=== PATIENT | female | born 1935 | race Caucasian/White ===

== ENCOUNTER → 2018-12-24 | Outpatient (CLI) | payer MEDICARE, OTHER ==
[~2018-12-24] MED LIST: AMLO5; ASPI81EC; FISH1000; GLUC500; MULVITMINF; RXPROACE PO; VALS80
== END | disposition home or self-care (01) ==
LOC: PLD 09:26 → LAB SHORT 09:26
DX: D48.5 Neoplasm of uncertain behavior of skin (principal)
CPT/HCPCS: 88305

== ENCOUNTER 2019-10-21 07:27 | Day surgery (SDC) | payer MEDICARE, OTHER ==
[~2019-10-21] VITALS: Ht 167.6 cm; Wt 66.9 kg
[~2019-10-21 07:27] MED LIST changes: -AMLO5; +AMLO5 PO; +EZALLOR SPRINKLE5 MG PO; +HAIR, SKIN AND1 EAC3 PO; +IRBE150 PO; +LEVSOD50 PO; +MIRALAX17 GM; +TORS10 PO; +VITAMIN D31000 UNI1 PO
--- NOTE | 2019-10-21 10:37 | NUR ---
10/21/19 ANURADHA STACY ON ROOM AIR. PATIENT UP TO CHAIR/STEADY ON FEET. TOLERATING PO INTAKE. DENIES PAIN/NAUSEA. CAP REFILL WNL ON RUE, PATIENT REPORTS NUMBNESS D/T LOCAL ANESTHESIA. PATIENT REPORTS THAT SHE WILL NOT BE TAKING TRAMADOL BECAUSE IT MADE HER AND ANOTHER FRIEND GO CRAZY. PATIENT PREFERS TO TAKE OVER THE COUNTER PAIN MEDICATIONS, AND SHE WILL CONTACT DR. RANDHAWA'S OFFICE IF THIS IS NOT EFFECTIVE FOR PAIN CONTROL. DR. RANDHAWA MADE AWARE OF THIS PLAN. DISCHARGE INSTRUCTIONS REVIEWED WITH PATIENT. PATIENT VERBALIZES UNDERSTANDING. COPY GIVEN TO PATIENT TO TAKE HOME. PATIENT STATES POST-PROCEDURE RIDE HOME HAS BEEN ARRANGED WITH TOMMY.
== END 2019-10-21 10:26 | disposition home or self-care (01) ==
LOC: ORSCSDS 07:27
PROVIDERS: Orthopaedic Surgery
PROC: 0LN70ZZ Release Right Hand Tendon, Open Approach (ICD-10-PCS; principal; 2019-10-21 08:45)
PROC: 01N50ZZ Release Median Nerve, Open Approach (ICD-10-PCS; principal; 2019-10-21 08:45)
DX: G56.01 Carpal tunnel syndrome, right upper limb (principal); M65.331 Trigger finger, right middle finger; M65.341 Trigger finger, right ring finger; I10 Essential (primary) hypertension; E78.5 Hyperlipidemia, unspecified; Z79.899 Other long term (current) drug therapy
CPT/HCPCS: J0690; J2250; J2704; J3010

== ENCOUNTER 2020-06-08 06:22 | Day surgery (SDC) | payer MEDICARE, OTHER ==
[~2020-06-08] VITALS: Ht 162.6 cm; Wt 67.4 kg
--- NOTE | 2020-06-08 06:54 | NUR ---
06/08/20 [id number] Kelsey RodrgiuezLaurie CHARTED BY VANNA REAVES RN
== END 2020-06-08 08:40 | disposition home or self-care (01) ==
LOC: ORSCSDS 06:22
PROVIDERS: Orthopaedic Surgery
PROC: 01N50ZZ Release Median Nerve, Open Approach (ICD-10-PCS; principal; 2020-06-08 07:30)
PROC: 0LN80ZZ Release Left Hand Tendon, Open Approach (ICD-10-PCS; principal; 2020-06-08 07:30)
DX: G56.02 Carpal tunnel syndrome, left upper limb (principal); M65.342 Trigger finger, left ring finger; I10 Essential (primary) hypertension; Z79.899 Other long term (current) drug therapy
CPT/HCPCS: A9270-GY; J2250; J2704; J3010; J7120

== ENCOUNTER → 2023-09-21 | Outpatient (CLI) | payer MEDICARE, OTHER ==
[2023-09-21 10:40] LABS: Source, Urine Clean Catch
[2023-09-21 13:43] LABS: Appearance, Urine Clear (Clear); Bilirubin, Urine Neg (Neg); Blood, Urine Neg (Neg); Color, Urine Yellow (P-Yellow); Glucose Qualitative, Urine Neg (Neg); Ketones, Urine Neg (Neg); Leukocyte Esterase, Urine 2+ (Neg); Nitrite, Urine Neg (Neg); Protein, Urine 1+ (Neg); Urobilinogen, Urine NORM (Normal)
[2023-09-21 13:55] LABS: Bacteria Mod /hpf; Red Blood Cells, Urine 0-2 /hpf (0-2); Squamous Epithelial Cells Few /hpf (Few); Transitional Epithelial Cells Rare /hpf (0-Rare)
== END | disposition home or self-care (01) ==
LOC: LAB SHORT 08:45 → LAB 08:45 → EDSTATUS 09-20 13:20 → LAB FUT 09-20 13:20
PROVIDERS: Nurse Practitioner Family
DX: R31.9 Hematuria, unspecified (principal)
CPT/HCPCS: 81001; 87077; 87086; 87186

== ENCOUNTER → 2023-10-02 | Outpatient (CLI) | payer MEDICARE, OTHER | END | disposition home or self-care (01) | LOC: LAB 13:30 → LAB SHORT 13:30 | DX: N39.0 Urinary tract infection, site not specified (principal) | CPT/HCPCS: 87086 ==

== ENCOUNTER → 2023-10-29 | Outpatient (CLI) | payer MEDICARE, OTHER | END | disposition home or self-care (01) | LOC: LAB 07:22 → LAB SHORT 07:22 | DX: C44.329 Squamous cell carcinoma of skin of other parts of face (principal) | CPT/HCPCS: 88305 ==

== ENCOUNTER → 2024-10-28 | Outpatient (CLI) | payer MEDICARE, OTHER ==
[2024-10-28 13:38] LABS: Stool Occult Bld Immuno 1 Negative (NEGATIVE)
== END ==
LOC: LAB SHORT 10:45 → LAB 10:45 → LAB FUT 09-29 13:05
PROVIDERS: Nurse Practitioner Family
DX: Z12.11 Encounter for screening for malignant neoplasm of colon (principal)
CPT/HCPCS: G0328